=== PATIENT | female | born 1975 | race African-American/Black ===

== ENCOUNTER 2019-10-26 16:48 | Emergency (ER) | payer OTHER, SELFPAY ==
[~2019-10-26 16:48] MED LIST: Iopamidol 370 76% 100 ML VIAL ONE
[2019-10-26 17:31] LABS: #Basophils 0.1 thou/uL (0.0-0.2); #Eosinphils 0.3 thou/uL (0.0-0.7); #Lymphocytes 3.2 thou/uL (1.20-3.40); #Monocytes 0.5 thou/uL (0.11-0.59); #Neutrophils 2.3 thou/uL (1.40-6.50); %Basophils 1.4 % (0.0-1.0); %Eosinophils 5.2 % (0.0-10.0); %Lymphocytes 49.8 % (21.0-51.0); %Monocytes 7.5 % (0.0-10.0); %Neutrophils 36.2 % (42.0-75.0); Hemoglobin 14.2 g/dL (12.0-16.0); Mean Corpuscular HGB CONC 34.3 g/dL (32.0-36.0); Mean Corpuscular Hemoglobin 32.9 pg (27.0-31.0); Mean Corpuscular Volume 95.7 fL (78.0-98.0); Mean Platelet Volume 7.4 fL (7.4-10.4); Platelet Count 243 thou/uL (130-400); RBC Distribution Width 10.9 % (11.5-14.5); Red Blood Cell (RBC) Count 4.31 mill/uL (4.20-5.40); White Blood Cell (WBC) Count 6.4 thou/uL (4.8-10.8)
[2019-10-26 17:50] LABS: ALT (SGPT) 10 U/L (8-55); AST (SGOT) 15 U/L (5-34); Albumin 3.9 g/dL (3.5-5.0); Alkaline Phosphatase 83 U/L (40-110); Anion Gap 14 mmol/L (10-20); BUN (Urea Nitrogen) 12 mg/dL (7.0-18.7); Bilirubin, Total 0.4 mg/dL (0.2-1.2); Calc. Creatinine Clearance 0 mL/min (70-130); Calcium 9.5 mg/dL (7.8-10.44); Carbon Dioxide 24 mmol/L (22-29); Chloride 104 mmol/L (98-107); Estimated GFR-MDRD 57; Globulin 3.2 g/dL (2.4-3.5); Glucose 83 mg/dL (70-105); Potassium 4.2 mmol/L (3.5-5.1); Protein, Total 7.1 g/dL (6.0-8.3); Sodium 138 mmol/L (136-145)
--- NOTE | 2019-10-26 18:31 | RAD ---
CHEST ONE VIEW: History: Shortness of breath Comparison: None FINDINGS: There is mild elevation of the hemidiaphragm. Lungs are clear. No pneumothorax. No effusion. Sutures noted in the left upper lobe. Superior elevation of the right minor fissure. IMPRESSION: No acute intrathoracic abnormality. POS: HOME
[2019-10-26] MEDS ORDERED: Meclizine HCl 25 MG TAB ONE (19:41)
[2019-10-26] MEDS ORDERED: Ketorolac Tromethamine 30 MG/ML VIAL ONE (19:41)
--- NOTE | 2019-10-26 20:00 | CT ---
CT ANGIOGRAM CHEST WITH CONTRAST: History: Chest pain. Comparison: Radiograph same day. FINDINGS: CT angiogram chest performed after the intravenous administration of contrast. 3D rendering provided. No proximal segmental pulmonary arterial filling defect. Pulmonary arteries are not dilated. Heart si ze is normal. The aortic contour is normal. There is a bulla in the right lung apex with peripheral suture. Atelectasis left lung base. No consol idation. No superimposed pneumothorax or effusion. Thoracic spine is intact. No compression deformity. Celiac trunk and superior mesenteric arteries are patent. No acute displaced rib fracture. IMPRESSION: 1. No pulmonary embolism. 2. 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 3. No acute intrathoracic abnormality. No evidence for pneumonia. POS: HOME
--- NOTE | 2019-10-31 14:00 | EKG ---
Test Reason : SOB Blood Pressure : / mmHG Vent. Rate : 075 BPM Atrial Rate : 075 BPM P-R Int : 174 ms QRS Dur : 082 ms QT Int : 370 ms P-R-T Axes : 040 007 044 degrees QTc Int : 413 ms Normal sinus rhythm Normal ECG Confirmed by KELLI LANDEROS DO ([id number]), assignment desk editor MARIN GARCIA ([id number] on 10/31/2019 1:59:30 PM Referred By: Confirmed By:KELLI LANDEROS DO
== END 2019-10-26 20:30 | disposition home or self-care (01) ==
LOC: ERS 16:48
DX: R07.89 Other chest pain (principal); R42 Dizziness and giddiness; I10 Essential (primary) hypertension; G43.909 Migraine, unspecified, not intractable, without status migrainosus; G62.9 Polyneuropathy, unspecified; F31.9 Bipolar disorder, unspecified; F41.9 Anxiety disorder, unspecified; F43.10 Post-traumatic stress disorder, unspecified; Z79.899 Other long term (current) drug therapy
CPT/HCPCS: 36415; 71045; 71275; 80053; 85025; 85379; 93005; 96361; 96374; J1885; Q9967

== ENCOUNTER 2022-01-27 12:14 | Outpatient (CLI) | payer OTHER | END 2022-01-27 12:15 | disposition home or self-care (01) | LOC: SCSMRI 12:14 | PROVIDERS: ATTEND Nurse Practitioner Family | DX: M54.12 Radiculopathy, cervical region (principal); M48.02 Spinal stenosis, cervical region | CPT/HCPCS: 72141 ==